=== PATIENT | male | born 1985 | race Asian ===

== ENCOUNTER 2016-12-27 17:19 | Emergency (ER) | payer OTHER ==
[~2016-12-27] VITALS: Ht 172.7 cm; Wt 72.0 kg
[2016-12-27 17:28] VITALS: BP 116/70
[2016-12-27] MEDS ORDERED: BACITRACIN ZINC OINT 500U/GM, 0.9 GM ONE (17:55)
[2016-12-27] MEDS ORDERED: DIPH,PERTUSS(ACELL),TET VAC/PF 0.5 ML IM-VACC ONE ×2 (17:55→19:00)
== END 2016-12-27 18:15 | disposition home or self-care (01) ==
LOC: ED 18:00
DX: S80.812A Abrasion, left lower leg, initial encounter (principal); X58.XXXA Exposure to other specified factors, initial encounter; Y93.89 Activity, other specified; Y92.009 Unspecified place in unspecified non-institutional (private) residence as the place of occurrence of the external cause; Y99.9 Unspecified external cause status
CPT/HCPCS: 90471; 90715